=== PATIENT | female | born 1995 | race Caucasian/White ===

== ENCOUNTER → 2020-12-11 | Day surgery (SDC) | payer OTHER ==
[~2020-12-11] VITALS: Ht 160 cm; Wt 89.8 kg
[~2020-12-11] MED LIST: BENTYL 10MG CAP10 MG PO; COLACE 100MG C100 MG PO; DEPO INJECTION INJ; HYDROCODON-ACE1 EAC4 PO; IBUPROFEN600 MG PO; INDOCIN 50 MG C50 MG PO; LORTAB 5-325 M1 EACH PO; PRENATAL VITAM1 EAC3 PO; PYRIDIUM100 MG PO; ZANTAC150 MG PO; ZOFRAN4 MG PO
[2020-12-11 06:30] LABS: HEMOGLOBIN 15.2 gm/dl (12.3-15.3); RED BLOOD COUNT 4.78 M/UL (4.00-5.10); WHITE BLOOD COUNT 8.3 K/UL (4.5-11.0)
[2020-12-11 07:09] LABS: BUN/CREATININE RATIO 19 (0-10)
== END | disposition home or self-care (01) ==
LOC: OR 05:45
PROVIDERS: Orthopaedic Surgery
DX: G56.03 Carpal tunnel syndrome, bilateral upper limbs (principal)
CPT/HCPCS: 36415; 80048; 84703; 85025; J1100; J2001; J2250; J2405; J2704; J2765; J3010; J7120

== ENCOUNTER 2020-12-15 13:27 | Emergency (ER) | payer OTHER ==
[2020-12-30] MEDS ORDERED: HYDROCODON-ACE1 EAC4 PO (07:18)
== END 2020-12-15 17:44 | disposition home or self-care (01) ==
LOC: ER1 13:27
DX: M96.89 Other intraoperative and postprocedural complications and disorders of the musculoskeletal system (principal)
CPT/HCPCS: 73110; 99283

== ENCOUNTER → 2020-12-30 | Day surgery (SDC) | payer OTHER ==
[2020-12-30 07:23] LABS: HEMOGLOBIN 15.3 gm/dl (12.3-15.3); RED BLOOD COUNT 4.83 M/UL (4.00-5.10); WHITE BLOOD COUNT 7.9 K/UL (4.5-11.0)
== END | disposition home or self-care (01) ==
LOC: OR 05:33
PROVIDERS: Orthopaedic Surgery
DX: G56.02 Carpal tunnel syndrome, left upper limb (principal); E66.9 Obesity, unspecified; Z20.822 Contact with and (suspected) exposure to COVID-19
CPT/HCPCS: 36415; 84703; 85025; J1100; J1885; J2001; J2250; J2370; J2405; J2704; J3010; J7120

== ENCOUNTER → 2022-01-28 | Outpatient (CLI) | payer OTHER | LOC: MRI 08:28 | DX: H91.91 Unspecified hearing loss, right ear (principal) | CPT/HCPCS: 70553; A9577 ==